=== PATIENT | female | born 1955 | race Caucasian/White ===

== ENCOUNTER 2019-07-13 07:12 | Day surgery (SDC) | payer OTHER ==
[~2019-07-13] VITALS: Ht 165.1 cm; Wt 97.7 kg
[~2019-07-13 07:12] MED LIST: ASPI-831 PO; ASPIRIN 81MG; BASAGLAR 20 UNIT; BESYLATE; BYSTOLIC 20 MG; DICLOFENAC 50MG; GLIPIZIDE 5 MG; HYDRALAZINE 100 MG; JANUVIA 100MG; LEVOTHYROXINE 125MCG; LIPITOR 80 MG; LISINOPRIL 30 MG; MECLIZINE 25 MG; METFORMIN 1000MG; TYLENOL PRN; XANAX; [UNRECOGNIZED DRUG - REMARK]
[2019-07-13 08:00] VITALS: Ht 165.1 cm; Wt 97.7 kg
[2019-07-13 08:24] VITALS: BP 153/74; PULSE 63; RESP 20
[2019-07-13] MEDS ORDERED: FENTAnyl 50 MCG/ML VIAL ONE (08:29)
[2019-07-13] MEDS ORDERED: ETOMIDATE 20 MG INJ ONE (08:29)
[2019-07-13 09:03] VITALS: BP 176/88; PULSE 71; RESP 24
[2019-07-13 09:18] VITALS: BP 159/80; PULSE 68; RESP 21
== END 2019-07-13 13:38 | disposition home or self-care (01) ==
LOC: GIL 07:12
PROVIDERS: ATTEND Internal Medicine Gastroenterology
DX: Z12.11 Encounter for screening for malignant neoplasm of colon (principal); D12.0 Benign neoplasm of cecum; K64.4 Residual hemorrhoidal skin tags; E11.9 Type 2 diabetes mellitus without complications; E03.9 Hypothyroidism, unspecified; I50.9 Heart failure, unspecified; Z86.73 Personal history of transient ischemic attack (TIA), and cerebral infarction without residual deficits
CPT/HCPCS: 45385; 82962; 88305; J3010; Z7610